=== PATIENT | female | born 1970 | race Two or more races ===

== ENCOUNTER 2016-10-23 05:31 | Emergency (ER) | payer SELFPAY ==
[2016-10-23 05:59] VITALS: TEMP 98.4; O2SAT 95
--- NOTE | 2016-10-23 06:13 | EDPHY ---
H & P Stated Complaint: Palpation to the left side of neck. Pt is worried about thyriod issues HPI/ROS: HPI CHIEF COMPLAINT: [ ] HISTORY OF PRESENT ILLNESS: [Need 4: Location, Duration, Severity, Quality, Context, Timing Modifying Factors, Associated S&S] Past Medical History: Past Surgical History: Social History: Family History: ROS REVIEW OF SYSTEMS: A comprehensive 10 point review of systems is otherwise negative aside from elements mentioned in the history of present illness. Exam Constitutional triage nursing summary reviewed, vital signs reviewed, awake/ alert. Eyes normal conjunctivae and sclera, EOMI, PERRLA. HENT normal inspection, atraumatic, moist mucus membranes, no epistaxis, neck supple/ no meningismus, no raccoon eyes. Respiratory clear to auscultation bilaterally, normal breath sounds, no respiratory distress, no wheezing. Cardiovascular rate normal, regular rhythm, no murmur, no edema, distal pulses normal. Gastrointestinal soft, non-tender, no rebound, no guarding, normal bowel sounds, no distension, no pulsatile mass. Genitourinary no CVA tenderness. Musculoskeletal no midline vertebral tenderness, full range of motion, no calf swelling, no tenderness of extremities, no meningismus, good pulses, neurovascularly intact. Skin pink, warm, & dry, no rash, skin atraumatic. Neurologic awake, alert and oriented x 3, AAOx3, moves all 4 extremities equally, motor intact, sensory intact, CN II-XII intact, normal cerebellar, normal vision, normal speech. Psychiatric normal mood/affect. Heme/Lymph/Immune no lymphadenopathy. Differential Diagnosis: Medical Decision Making: Re-evaluation: Source: Patient - Personal History LMP (Females 10-55): Now Current Tetanus/Diphtheria Vaccine: Yes Current Tetanus Diphtheria and Acellular Pertussis (TDAP): Yes - Medical/Surgical History Hx Asthma: No Hx Chronic Respiratory Disease: No Hx Diabetes: No Hx Cardiac Disease: No Hx Renal Disease: No Hx Cirrhosis: No Hx Alcoholism: No Hx HIV/AIDS: No Hx Splenectomy or Spleen Trauma: No Other PMH: ulcer, hypothroid - Social History Smoking Status: Never smoked Constitutional: Initial Vital Signs Temperature (C) 36.9 C 10/23/16 05:56 Heart Rate 90 10/23/16 05:56 Respiratory Rate 16 10/23/16 05:56 Blood Pressure 168/97 H 10/23/16 05:56 O2 Sat (%) 95 10/23/16 05:56 O2 Delivery Mode Room Air Allergies/Adverse Reactions: ciprofloxacin [From Cipro] Allergy (Verified 10/23/16 05:54) Penicillins Allergy (Verified 10/23/16 05:54) Home Medications: Medication Instructions Recorded Levothyroxine 10/23/16 Pantoprazole Sodium 10/23/16 Ranitidine HCl 10/23/16 Sucralfate 10/23/16 Departure - Departure Condition: Good Referrals: NONE *PRIMARY CARE P,. [Primary Care Provider] - As per Instructions
[2016-10-23] MEDS ORDERED: NS 1,000 ML IV ONE (06:19)
[2016-10-23 06:28] LABS: % IMMATURE GRANULYOCYTES 0.2 % (0.0-1.1); ABSOLUTE IMMATURE GRANULOCYTES 0.01 10^3/uL (0.00-0.10); ADD DIFF? NO; ADD MORPH? NO; ADD SCAN? NO; ATYPICAL LYMPHOCYTE FLAG 0 (0-99); FRAGMENT RBC FLAG 20 (0-99); HEMATOCRIT 39.2 % (38.0-47.0); HEMOGLOBIN 12.8 g/dL (12.6-16.3); LEFT SHIFT FLG 0 (0-99); LIPEMIA HEMOLYSIS FLAG 80 (0-99); MEAN CELL HEMOGLOBIN 29.1 pg (27.9-34.1); MEAN CELL HEMOGLOBIN CONCENTR. 32.7 g/dL (32.4-36.7); MEAN CELL VOLUME 89.1 fL (81.5-99.8); MEAN PLATELET VOLUME 11.8 fL (8.7-11.7); PLATELET CLUMPS FLAG 20 (0-99); PLATELET COUNT 321 10^3/uL (150-400); RED CELL DISTRIBUTION WIDTH 17.9 % (11.5-15.2)
[2016-10-23 06:33] LABS: INR 1.02 (0.83-1.16); PROTIME(PATIENT) 13.3 SEC (12.0-15.0)
[2016-10-23 06:34] LABS: ALANINE AMINOTRANSFERASE 31 IU/L (9-52); ALBUMIN 4.4 g/dL (3.5-5.0); ALKALINE PHOSPHATASE 83 IU/L (38-126); ANION GAP 14 mEq/L (8-16); APTT 30.6 SEC (23.0-38.0); ASPARTATE AMINOTRANSFERASE 26 IU/L (14-46); BILIRUBIN,TOTAL 0.6 mg/dL (0.1-1.4); BILIRUBIN-CONJUGATED 0.3 mg/dL (0.0-0.5); BILIRUBIN-UNCONJUGATED 0.3 mg/dL (0.0-1.1); CALCIUM 9.9 mg/dL (8.5-10.4); CARBON DIOXIDE 23 mEq/l (22-31); CHLORIDE 103 mEq/L (97-110); CREATININE 0.5 mg/dL (0.6-1.0); GLOMERULAR FILTRATION RATE > 60; GLUCOSE 99 mg/dL (70-100); SODIUM 140 mEq/L (134-144)
--- NOTE | 2016-10-23 06:52 | EDPHY ---
H & P Time Seen by Provider: 10/23/16 06:38 HPI/ROS: CHIEF COMPLAINT: Palpitations in the neck HISTORY OF PRESENT ILLNESS: Patient just moved here from [place]. Is on thyroid medication and proton pump inhibitor. Was seen in the emergency department in [place] on 10/02 with general weakness and neck pain. At that time she was recovering from gastroenteritis. She also brings a medical chart from [facility] dated 10/19/2016 which includes labs which have TSH of 0.03 and a free T4 of 1.46. She was discharged diagnosis abdominal pain and dehydration. The patient presents to me today stating she has had palpitations in the left side of her neck and "feeling bad" for a month or a month and a half. This is in the context of drinking more water and recently moving now from [place] to [place] to be with family. Symptoms not associated with chest pain or shortness of breath or actual syncope. Not related to position or time of day or any other activity. She has been drinking water. Symptoms moderate not significantly changed over the past 5 weeks. REVIEW OF SYSTEMS: Eye: no change in vision ENT: no sore throat Cardiac: no chest pain or syncope Pulmonary: no cough or SOB Abdomen: Gastroenteritis 3 weeks ago as noted in the HPI but nothing today. Musculoskeletal: no back pain Skin: no rash Neuro: no headache Constitutional: no fever : no urinary symptoms A comprehensive 10 point review of systems is otherwise negative aside from elements mentioned in the history of present illness. PAST MEDICAL HISTORY: Thyroid, ulcer Social history: Primarily Czech speaking, just moved from [place], no alcohol, no tobacco General Appearance: Alert and conversant, cooperative. Eyes: No scleral icterus. Extraocular motion intact. ENT, Mouth: Normal mucous membranes. Respiratory: Normal respiratory effort, breath sounds equal, lungs are clear to auscultation. Cardiovascular: Regular rate and rhythm. Gastrointestinal: Abdomen is soft and non tender. No epigastric or right upper quadrant tenderness. Neurological: Alert and oriented x3. Normally conversant. Face symmetric, normal movement and sensation in all extremities. Skin: Warm and dry, no rashes. Musculoskeletal: No peripheral edema and no joint swelling. No calf tenderness. Psychiatric: Not agitated. Flat affect, reluctant to make eye contact. Emergency Department course/MDM: Plan electrolytes, test, EKG and TSH. Needs primary care referral. 717: Labs reviewed including normal CBC chemistries. EKG shows sinus rhythm rate 74. Plan to check TSH, discharge with case planner to call her niece with this morning and try and arrange outpatient follow-up. 748: Results discussed, TSH is increasing, encouraged to continue on current medications. Case management Jennifer given patient face sheet to call to assist in follow-up. Smoking Status: Never smoked Constitutional: Initial Vital Signs Temperature (C) 36.9 C 10/23/16 05:56 Heart Rate 90 10/23/16 05:56 Respiratory Rate 16 10/23/16 05:56 Blood Pressure 168/97 H 10/23/16 05:56 O2 Sat (%) 95 10/23/16 05:56 O2 Delivery Mode Room Air Allergies/Adverse Reactions: ciprofloxacin [From Cipro] Allergy (Verified 10/23/16 05:54) Penicillins Allergy (Verified 10/23/16 05:54) Home Medications: Medication Instructions Recorded Levothyroxine 10/23/16 Pantoprazole Sodium 10/23/16 Ranitidine HCl 10/23/16 Sucralfate 10/23/16 Medical Decision Making - Diagnostics EKG Interpretation: 12-lead EKG interpreted by me; official reading is in trace master. My interpretation is sinus rhythm rate 74 with LVH Differential Diagnosis: Differential for palpitations considered including but not limited to rode storm , SVT, malignant dysrhythmia, anemia, electrolyte disorder. - Data Points Laboratory Results: Laboratory Results 10/23/16 06:05 10/23/16 06:05 10/23/16 10/23/16 10/23/16 06:05 06:05 06:05 WBC RBC Hgb Hct MCV MCH MCHC RDW Plt Count MPV Neut % (Auto) Lymph % (Auto) [place] % (Auto) Eos % (Auto) Baso % (Auto) Nucleat RBC Rel Count Absolute Neuts (auto) Absolute Lymphs (auto) Absolute Monos (auto) Absolute Eos (auto) Absolute Basos (auto) Absolute Nucleated RBC Immature Gran % Immature Gran # PT INR APTT Sodium 140 mEq/L mEq/L (134-144) Potassium 4.0 mEq/L mEq/L (3.5-5.2) Chloride 103 mEq/L mEq/L (97-110) Carbon Dioxide 23 mEq/l mEq/l (22-31) Anion Gap 14 mEq/L mEq/L (8-16) BUN 6 mg/dL L mg/dL (7-23) Creatinine 0.5 mg/dL L mg/dL (0.6-1.0) Estimated GFR > 60 Glucose 99 mg/dL mg/dL (70-100) Calcium 9.9 mg/dL mg/dL (8.5-10.4) Total Bilirubin 0.6 mg/dL mg/dL (0.1-1.4) Conjugated Bilirubin 0.3 mg/dL mg/dL (0.0-0.5) Unconjugated Bilirubin 0.3 mg/dL mg/dL (0.0-1.1) AST 26 IU/L IU/L (14-46) ALT 31 IU/L IU/L (9-52) Alkaline Phosphatase 83 IU/L IU/L (38-126) Total Protein 8.0 g/dL g/dL (6.3-8.2) Albumin 4.4 g/dL g/dL (3.5-5.0) Lipase 45 IU/L IU/L (23-300) TSH 0.244 uIU/mL L uIU/mL (0.465-4.680) Beta HCG, Qual NEGATIVE 10/23/16 10/23/16 06:05 06:05 WBC 6.54 10^3/uL 10^3/uL (3.80-9.50) RBC 4.40 10^6/uL 10^6/uL (4.18-5.33) Hgb 12.8 g/dL g/dL (12.6-16.3) Hct 39.2 % % (38.0-47.0) MCV 89.1 fL fL (81.5-99.8) MCH 29.1 pg pg (27.9-34.1) MCHC 32.7 g/dL g/dL (32.4-36.7) RDW 17.9 % H % (11.5-15.2) Plt Count 321 10^3/uL 10^3/uL (150-400) MPV 11.8 fL H fL (8.7-11.7) Neut % (Auto) 59.8 % % (39.3-74.2) Lymph % (Auto) 27.4 % % (15.0-45.0) [place] % (Auto) 9.2 % % (4.5-13.0) Eos % (Auto) 2.6 % % (0.6-7.6) Baso % (Auto) 0.8 % % (0.3-1.7) Nucleat RBC Rel Count 0.0 % % (0.0-0.2) Absolute Neuts (auto) 3.92 10^3/uL 10^3/uL (1.70-6.50) Absolute Lymphs (auto) 1.79 10^3/uL 10^3/uL (1.00-3.00) Absolute Monos (auto) 0.60 10^3/uL 10^3/uL (0.30-0.80) Absolute Eos (auto) 0.17 10^3/uL 10^3/uL (0.03-0.40) Absolute Basos (auto) 0.05 10^3/uL 10^3/uL (0.02-0.10) Absolute Nucleated RBC 0.00 10^3/uL 10^3/uL (0-0.01) Immature Gran % 0.2 % % (0.0-1.1) Immature Gran # 0.01 10^3/uL 10^3/uL (0.00-0.10) PT 13.3 SEC SEC (12.0-15.0) INR 1.02 (0.83-1.16) APTT 30.6 SEC SEC (23.0-38.0) Sodium Potassium Chloride Carbon Dioxide Anion Gap BUN Creatinine Estimated GFR Glucose Calcium Total Bilirubin Conjugated Bilirubin Unconjugated Bilirubin AST ALT Alkaline Phosphatase Total Protein Albumin Lipase TSH Beta HCG, Qual Medications Given: Discontinued Medications Sodium Chloride (Ns) 1,000 mls @ 0 mls/hr IV EDNOW ONE; Wide Open PRN Reason: Protocol Stop: 10/23/16 06:20 Last Admin: 10/23/16 06:28 Dose: 1,000 mls Departure - Departure Disposition: Home, Routine, Self-Care Clinical Impression: Weakness Condition: Good Instructions: Thyroid (By mouth), Weakness (ED) Additional Instructions: Continue thyroid medication as currently prescribed. Your TSH level today is 0.244, which is up from 0.03 on October 17. Case management will call your Niece today to assist in arranging follow-up. Referrals: [facility],. [Clinic] - As per Instructions
--- NOTE | 2016-10-23 07:03 | CPEKG ---
Heart Rate: 74 RR Interval: 811 P-R Interval: 156 QRSD Interval: 80 QT Interval: 400 QTC Interval: 444 P [place]: 17 QRS [place]: -5 T Wave [place]: 13 EKG Severity - ABNORMAL ECG - EKG Impression: SINUS RHYTHM EKG Impression: LEFT VENTRICULAR HYPERTROPHY Electronically Signed By: Anshu Paul 23-Oct-2016 07:17:33
[2016-10-23 08:15] VITALS: BP 149/97; PULSE 74; RESP 18
== END 2016-10-23 08:15 | disposition home or self-care (01) ==
DX: R53.1 Weakness (principal); E86.9 Volume depletion, unspecified

== ENCOUNTER → 2016-12-19 | Outpatient (CLI) | payer MEDICAID | LOC: FIMAGING 08:25 | DX: Z12.31 Encounter for screening mammogram for malignant neoplasm of breast (principal) | CPT/HCPCS: G0202 ==

== ENCOUNTER 2017-05-12 04:39 | Emergency (ER) | payer MEDICAID ==
--- NOTE | 2017-05-12 04:44 | EDPHY ---
H & P Time Seen by Provider: 05/12/17 04:44 HPI/ROS: HPI CHIEF COMPLAINT: Cough, wheezing HISTORY OF PRESENT ILLNESS: Patient very pleasant 46-year-old female, she has a history of thyroid disease, and asthma, she states she has been sick for 4 days with wheezing in her chest and coughing. She states she does not cough anything up. Denies any fever. Denies chest pain or pleuritic pain. Denies hemoptysis. Complains of worsening wheezing and shortness of breath. She was seen at the clinic and given cough medicine, steroids 40 mg, and albuterol inhaler however she presents emergency room with worsening cough. Past Medical History: Thyroid disease, asthma Past Surgical History: Denies significant surgical history Social History: Denies drugs alcohol tobacco. Family History: Noncontributory ROS REVIEW OF SYSTEMS: A comprehensive 10 point review of systems is otherwise negative aside from elements mentioned in the history of present illness. Exam Constitutional appears well nontoxic no acute distress triage nursing summary reviewed, vital signs reviewed, awake/alert. Vital signs stable. Eyes normal conjunctivae and sclera, EOMI, PERRLA. HENT normal inspection, atraumatic, moist mucus membranes, no epistaxis, neck supple/ no meningismus, no raccoon eyes. Respiratory wheezing throughout all lung rawls, bronchitic sounding cough on exam, no distress Cardiovascular rate normal, regular rhythm, no murmur, no edema, distal pulses normal. Gastrointestinal soft, non-tender, no rebound, no guarding, normal bowel sounds, no distension, no pulsatile mass. Genitourinary no CVA tenderness. Musculoskeletal no midline vertebral tenderness, full range of motion, no calf swelling, no tenderness of extremities, no meningismus, good pulses, neurovascularly intact. Skin pink, warm, & dry, no rash, skin atraumatic. Neurologic awake, alert and oriented x 3, AAOx3, moves all 4 extremities equally, motor intact, sensory intact, CN II-XII intact, normal cerebellar, normal vision, normal speech. Psychiatric normal mood/affect. Heme/Lymph/Immune no lymphadenopathy. Differential Diagnosis: Includes but is not limited to in a particular order acute bronchitis, reactive airway disease, pneumonia, viral syndrome, asthma Medical Decision Making: Plan for this patient DuoNeb breathing treatment here in emergency room, two view chest x-ray to rule out pneumonia. Re-evaluation: Most likely I will increase her prednisone to 60 mg for 5 days, and had another cough medicine for her. Chest x-ray reviewed two view no evidence of acute pneumonia or pneumothorax. 0530: Patient re-evaluated this time. Resting comfortably. Good air movement throughout. Feels much better after DuoNeb breathing treatment. Plan for this patient will add azithromycin, up her prednisone to 60 mg q.day for 5 days, additionally new albuterol inhaler, and a prescription for nebulizer machine at home. Return precautions discussed with her she understands return emergency room if develops worsening shortness of breath, fever questions or concerns. Additionally I do recommend she follows up with primary care doctor. Patient asking for nebulizer machine and neb bullets. Will prescribe a prescription for nebulizer bolus and nebulizer machine. Source: Patient - Medical/Surgical History Hx Asthma: No Hx Chronic Respiratory Disease: No Hx Diabetes: No Hx Cardiac Disease: No Hx Renal Disease: No Hx Cirrhosis: No Hx Alcoholism: No Hx HIV/AIDS: No Hx Splenectomy or Spleen Trauma: No Other PMH: ulcer, hypothroid - Social History Smoking Status: Never smoked Constitutional: Initial Vital Signs Temperature (C) 37.2 C 05/12/17 04:42 Heart Rate 102 H 05/12/17 04:42 Respiratory Rate 18 05/12/17 04:42 Blood Pressure 145/104 H 05/12/17 04:42 O2 Sat (%) 95 05/12/17 04:42 O2 Delivery Mode Room Air Allergies/Adverse Reactions: ciprofloxacin [From Cipro] Allergy (Verified 05/12/17 04:47) Penicillins Allergy (Verified 05/12/17 04:47) Home Medications: Medication Instructions Recorded Levothyroxine 10/23/16 Albuterol Sulfate [ALBUTEROL 1.25 mg IH BID #30 05/12/17 SULFATE 1.25 MG/3 ML] Albuterol [Proventil Inhaler HFA 1 - 2 puffs IH Q4H #1 mdi 05/12/17 (*)] Azithromycin [Zithromax] 250 mg PO DAILY #6 tab 05/12/17 Hydrocodone/APAP 5/325 [[place] 1 - 2 tab PO Q4H PRN #10 tab 05/12/17 5/325] Nebulizer and Compressor [Ombra 1 each MC BID #1 each 05/12/17 Compressor System] Prednisone 05/12/17 Robitussin Nighttime Cough Dm 05/12/17 predniSONE 60 mg PO DAILY #15 tab 05/12/17 Medical Decision Making - Data Points Medications Given: Discontinued Medications Albuterol/Ipratropium (Duoneb) 3 ml IH EDNOW ONE Stop: 05/12/17 04:56 Last Admin: 05/12/17 04:58 Dose: 3 ml Departure - Departure Disposition: Home, Routine, Self-Care Clinical Impression: Acute bronchitis Qualifiers: Bronchitis organism: unspecified organism Qualified Code(s): J20.9 - Acute bronchitis, unspecified Condition: Good Instructions: Acute Bronchitis (ED) Additional Instructions: 1. Stay well-hydrated drink lots of fluids. 2. Take medicine as prescribed. 3. Return to the emergency room if there is worsening symptoms questions or concerns. Referrals: Patient,NotPresent [Unknown] - As per Instructions Prescriptions: Albuterol [Proventil Inhaler HFA (*)] 1 - 2 puffs IH Q4H #1 mdi Albuterol Sulfate [ALBUTEROL SULFATE 1.25 MG/3 ML] 1.25 mg IH BID #30 Azithromycin [Zithromax] 250 mg PO DAILY #6 tab Hydrocodone/APAP 5/325 [[place] 5/325] 1 - 2 tab PO Q4H PRN #10 tab PRN Reason: Pain, Moderate Nebulizer and Compressor [Ombra Compressor System] 1 each MC BID #1 each predniSONE 60 mg PO DAILY #15 tab
[2017-05-12] MEDS ORDERED: IPRATROPIUM/ALBUTEROL 3 ML DEYVIAL IH ONE ×2 (04:55→05:36)
[2017-05-12] MEDS ORDERED: IPRATROPIUM/ALBUTEROL 3 ML DEYVIAL ONE (05:35)
[2017-05-12 06:20] VITALS: BP 139/76; PULSE 93; RESP 16; TEMP 98.1; O2SAT 94
== END 2017-05-12 06:20 | disposition home or self-care (01) ==
DX: J20.9 Acute bronchitis, unspecified (principal); J45.909 Unspecified asthma, uncomplicated

== ENCOUNTER 2017-05-17 11:48 | Emergency (ER) | payer MEDICAID ==
--- NOTE | 2017-05-17 12:05 | CPEKG ---
Heart Rate: 74 RR Interval: 811 P-R Interval: 172 QRSD Interval: 78 QT Interval: 412 QTC Interval: 457 P [place]: 40 QRS [place]: -2 T Wave [place]: 26 EKG Severity - ABNORMAL ECG - EKG Impression: SINUS RHYTHM EKG Impression: LEFT VENTRICULAR HYPERTROPHY Electronically Signed By: Andrew Winchester 19-May-2017 12:54:25
[2017-05-17] MEDS ORDERED: IPRATROPIUM/ALBUTEROL 3 ML DEYVIAL ONE (12:30)
[2017-05-17] MEDS ORDERED: IPRATROPIUM/ALBUTEROL 3 ML DEYVIAL IH ONE (12:37)
--- NOTE | 2017-05-17 13:02 | EDPHY ---
General Time Seen by Provider: 05/17/17 12:46 Narrative: CHIEF COMPLAINT: Chest pain, cough, wheezing HISTORY OF PRESENT ILLNESS: Patient complains of centralized chest pain, cough and wheezing. She has had symptoms for nearly a week. She was initially seen at her primary care physician's office. She was treated with albuterol and steroids. This did not improve, thus she presented to our emergency department on the of this month. She was diagnosed with bronchitis and treated with Zithromax, 2 forms of albuterol and prednisone treatment. She was also given a prescription for [place]. She said that she has finished Zithromax and has been taking the hydrocodone for the cough and pain with significant improvement till this morning. At that time the pain returned. It is centralized chest pain. It is the same as her previous pain. It is associated with ongoing cough, wheezing and shortness of breath. She feels as though she has not improved. No abdominal pain. No headache or neck pain. No fever. No other associated complaints or modifying factors. REVIEW OF SYSTEMS: Ten systems reviewed and are negative unless otherwise noted in the HPI PCP: [facility] SPECIALISTS: None PAST MEDICAL HISTORY: Asthma hypothyroid PAST SURGICAL HISTORY: No surgical history recently SOCIAL HISTORY: Never smoker. No drug or alcohol use. 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 FAMILY HISTORY: Noncontributory EXAMINATION General Appearance: Alert, no distress Head: normocephalic, atraumatic Eyes: Pupils equal and round, no conjunctival pallor or injection ENT, Mouth: Mucous membranes moist. Uvula midline. Neck: Normal inspection, supple, non-tender Respiratory: Expiratory wheezes. No crackles. No diminishment. No consolidation. No retractions or distress Cardiovascular: Regular rate and rhythm. No murmur Gastrointestinal: Abdomen is soft and nontender Back: non-tender, no bony abnormalities Neurological: A&O, nonfocal, normal gait Skin: Warm and dry, no rash no petechiae or purpura Extremities: Nontender, no pedal edema Psychiatric: Mood and affect normal DIFFERENTIAL DIAGNOSES: Including but not limited to acute bronchitis, viral bronchitis, bacterial bronchitis, pneumonia, ACS, pleurisy, pericarditis MDM: 1:03 p.m. A centralized chest pain with ongoing cough, wheezing and difficulty breathing. The patient's complaint seem to be directly related to her bronchitis as she is improving with DuoNeb treatment. She does however have complaint of chest pain, thus this will be evaluated further. I have ordered chest x-ray and laboratory studies. She is in no acute distress at this time with stable vital signs and no need supplemental oxygen. 1:30 p.m. CBC unremarkable. Chemistry within normal limits. Troponin is pending. BNP pending. Influenza test pending. Chest x-ray has been read by radiologist as no pneumonia. 1:55 p.m. Patient is positive for RSV. Negative for flu. Troponin is negative. BNP is within normal limits. 2:20 p.m. Patient re-evaluated. She is reassured that her laboratory studies are negative pair chest x-ray does not show pneumonia. We discussed that she is positive for RSV, which can explain her bronchitis symptoms. I discussed that this may last for up to 3 weeks with lingering cough from this. I discussed that she is to continue her previously prescribed medications. I will add 1 further dose of Decadron x1. I will add Atrovent nebulized to her albuterol that was previously prescribed. I will add Tessalon Perles. She should increase her fluid intake and continue to take anti-inflammatories as needed. She informs that she gets reflux from some these medications, thus I recommend Maalox and taken with food. She has instructions to contact her primary care physician for follow-up. She has ED precautions. She is comfortable with this plan and discharged home stable condition. This medical decision-making was performed using the hospital's certified Swedish handcrew foreman at bedside in patient's room. SUPERVISION: Patient was independently examined, but I discussed the case with my secondary supervising physician Dr. Barraza - Diagnostics Imaging Results: Imaging Impressions Chest X-Ray 05/17/17 13:02 Impression: No discrete pneumonia. Central airways thickening which could be infectious or inflammatory. - History Smoking Status: Never smoked - Objective Vital Signs: Initial Vital Signs Temperature (C) 98.8 F 05/17/17 11:54 Heart Rate 75 05/17/17 11:54 Respiratory Rate 20 05/17/17 11:54 Blood Pressure 184/89 H 05/17/17 11:54 O2 Sat (%) 94 05/17/17 11:54 O2 Delivery Mode Room Air Allergies/Adverse Reactions: ciprofloxacin [From Cipro] Allergy (Verified 05/17/17 11:53) Penicillins Allergy (Verified 05/17/17 11:53) Home Medications: Medication Instructions Recorded Levothyroxine 10/23/16 Albuterol Sulfate [ALBUTEROL 1.25 mg IH BID #30 05/12/17 SULFATE 1.25 MG/3 ML] Albuterol [Proventil Inhaler HFA 1 - 2 puffs IH Q4H #1 mdi 05/12/17 (*)] Azithromycin [Zithromax] 250 mg PO DAILY #6 tab 05/12/17 Hydrocodone/APAP 5/325 [[place] 1 - 2 tab PO Q4H PRN #10 tab 05/12/17 5/325] Nebulizer and Compressor [[place] 1 each MC BID #1 each 05/12/17 Compressor System] Prednisone 05/12/17 Robitussin Nighttime Cough Dm 05/12/17 predniSONE 60 mg PO DAILY #15 tab 05/12/17 Benzonatate [Tessalon [place]les (RX)] 100 mg PO Q8 PRN #15 cap 05/17/17 Dexamethasone [Decadron 4 MG (*)] 8 mg PO ONCE #2 tab 05/17/17 Ipratropium [Atrovent Neb (*)] 0.5 mg IH Q6 PRN #1 deyvial 05/17/17 Laboratory Results: Laboratory Results 05/17/17 13:05 05/17/17 13:05 05/17/17 05/17/17 05/17/17 13:05 13:05 13:00 WBC 8.25 10^3/uL 10^3/uL (3.80-9.50) RBC 4.30 10^6/uL 10^6/uL (4.18-5.33) Hgb 12.6 g/dL g/dL (12.6-16.3) Hct 38.2 % % (38.0-47.0) MCV 88.8 fL fL (81.5-99.8) MCH 29.3 pg pg (27.9-34.1) MCHC 33.0 g/dL g/dL (32.4-36.7) RDW 14.6 % % (11.5-15.2) Plt Count 393 10^3/uL 10^3/uL (150-400) MPV 10.6 fL fL (8.7-11.7) Neut % (Auto) 56.2 % % (39.3-74.2) Lymph % (Auto) 34.3 % % (15.0-45.0) [place] % (Auto) 5.9 % % (4.5-13.0) Eos % (Auto) 2.1 % % (0.6-7.6) Baso % (Auto) 1.1 % % (0.3-1.7) Nucleat RBC Rel Count 0.0 % % (0.0-0.2) Absolute Neuts (auto) 4.64 10^3/uL 10^3/uL (1.70-6.50) Absolute Lymphs (auto) 2.83 10^3/uL 10^3/uL (1.00-3.00) Absolute Monos (auto) 0.49 10^3/uL 10^3/uL (0.30-0.80) Absolute Eos (auto) 0.17 10^3/uL 10^3/uL (0.03-0.40) Absolute Basos (auto) 0.09 10^3/uL 10^3/uL (0.02-0.10) Absolute Nucleated RBC 0.00 10^3/uL 10^3/uL (0-0.01) Immature Gran % 0.4 % % (0.0-1.1) Immature Gran # 0.03 10^3/uL 10^3/uL (0.00-0.10) Sodium 142 mEq/L mEq/L (135-145) Potassium 4.8 mEq/L mEq/L (3.5-5.2) Chloride 105 mEq/L mEq/L (97-110) Carbon Dioxide 24 mEq/l mEq/l (22-31) Anion Gap 13 mEq/L mEq/L (8-16) BUN 10 mg/dL mg/dL (7-23) Creatinine 0.5 mg/dL L mg/dL (0.6-1.0) Estimated GFR > 60 Glucose 89 mg/dL mg/dL (70-100) Calcium 9.2 mg/dL mg/dL (8.5-10.4) Troponin I < 0.012 ng/mL ng/mL (0.000-0.034) NT-Pro-B Natriuret Pep 44 pg/mL pg/mL (0-125) Nasal Influenza A PCR NEGATIVE FOR FLU A (NEGATIVE) Nasal Influenza B PCR NEGATIVE FOR FLU B (NEGATIVE) RSV (PCR) RSV DETECTED H (NEGATIVE) Medications Given: Discontinued Medications Albuterol/Ipratropium (Duoneb) 3 ml IH EDNOW ONE Stop: 05/17/17 12:38 Last Admin: 05/17/17 12:41 Dose: 3 ml Departure - Departure Disposition: Home, Routine, Self-Care Clinical Impression: RSV bronchitis Chest pain Qualifiers: Chest pain type: unspecified Qualified Code(s): R07.9 - Chest pain, unspecified Condition: Good Instructions: Acute Bronchitis (ED), Respiratory Syncytial Virus (ED) Additional Instructions: 1. I have added a prescription of Atrovent. You may mix this with your previous albuterol neb he will is every 6 hr as needed for wheezing 2.prescription of Tessalon Perles for cough. He may take this with her other medications 3. I have provided 1 prescription of Decadron 8 mg to be taken once today 4. Contact primary care physician for outpatient follow-up 5. ED precautions as discussed Referrals: [facility] [Other] - As per Instructions Prescriptions: Benzonatate [Tessalon [place]les (RX)] 100 mg PO Q8 PRN #15 cap PRN Reason: Cough, Mild Dexamethasone [Decadron 4 MG (*)] 8 mg PO ONCE #2 tab Ipratropium [Atrovent Neb (*)] 0.5 mg IH Q6 PRN #1 deyvial PRN Reason: Wheezing Print Language: Swedish
[2017-05-17 13:16] LABS: PLATELET COUNT 393 10^3/uL (150-400)
[2017-05-17 15:20] VITALS: BP 155/96
== END 2017-05-17 15:20 | disposition home or self-care (01) ==
DX: R07.9 Chest pain, unspecified (principal); J20.5 Acute bronchitis due to respiratory syncytial virus; J45.909 Unspecified asthma, uncomplicated